=== PATIENT | male | born 1955 | race Caucasian/White ===

== ENCOUNTER 2017-04-23 18:14 | Emergency (ER) | payer OTHER ==
[2017-04-23 18:33] VITALS: BP 155/100; PULSE 66; TEMP 98.3; BMI 26.5
--- NOTE | 2017-04-23 18:41 | PDOC ---
History of Present Illness <Frannie Cardoza - Last Filed: 04/23/17 18:43> - General History Source: Patient Exam Limitations: No Limitations - History of Present Illness Initial Comments: 04/23/17 18:56 The patient is a 61 year old male with past medical history of tension headaches who presents to the ED with complaints of left shoulder pain for the past few days. The patient reports a sharp pain that feels deep underneath his shoulder that is worse upon movement. He reports that his pain has been unaffected by using his tens unit or hot showers for the pain but reports he has been doing lots of yard work and playing tennis. He denies any trauma or injury to the area. The patient denies any fever, chills, nausea, vomiting, or diarrhea. <Lorraine Morejon - Last Filed: 04/23/17 18:57> - General Chief Complaint: Pain Stated Complaint: PAIN L SHOULDER,LEFT ARM Time Seen by Provider: 04/23/17 18:30 Past History - Past Medical History Anemia: No Asthma: No Cancer: No Cardiac Disorders: No (PALPITATIONS) CVA: No COPD: No CHF: No DVT: No Dementia: No Diabetes: No GI Disorders: No Disorders: No HTN: No Hypercholesterolemia: No Liver Disease: No Seizures: No Thyroid Disease: No Other medical history: BACK PAIN - Surgical History Abdominal Surgery: Yes (HERNIA REPAIR) Appendectomy: No Cardiac Surgery: No Cholecystectomy: No Lung Surgery: No Neurologic Surgery: No Orthopedic Surgery: Yes - Suicide/Smoking/Psychosocial Hx Smoking Status: No Smoking History: Never smoked Have you smoked in the past 12 months: No Number of Cigarettes Smoked Daily: 0 Information on smoking cessation initiated: No Hx Alcohol Use: Yes (SOCIAL) Drug/Substance Use Hx: No Substance Use Type: Alcohol Hx Substance Use Treatment: No <Frannie Cardoza - Last Filed: 04/23/17 18:43> <Lorraine Morejon - Last Filed: 04/23/17 18:57> - Past Medical History Allergies/Adverse Reactions: Allergies Allergy/AdvReac Type Severity Reaction Status Date / Time codeine [Codeine] AdvReac Severe MIGRAINES Verified 04/23/17 18:26 hydrocodone [Hydrocodone] AdvReac Severe REBOUND Verified 04/23/17 18:26 HEADACHE oxycodone HCl [From Percocet] AdvReac Severe REBOUND Verified 04/23/17 18:26 HEADACHE OPIATES Allergy Severe MIGRAINES Uncoded 04/23/17 18:26 Home Medications: Ambulatory Orders Rizatriptan Benzoate [Maxalt] 10 mg PO PRN PRN 05/29/11 Verapamil HCl [Verapamil ER] 120 mg PO HS 04/24/12 Ibuprofen [Motrin -] 600 mg PO TID PRN #21 tablet 04/23/17 Methocarbamol [Robaxin -] 500 mg PO BID PRN #14 tablet 04/23/17 Review of Systems - Review of Systems Able to Perform ROS?: Yes Comments:: 04/23/17 18:56 GENERAL/CONSTITUTIONAL: No fever or chills. No weakness. HEAD, EYES, EARS, NOSE AND THROAT: No change in vision. No ear pain or discharge. No sore throat. CARDIOVASCULAR: No chest pain or shortness of breath. RESPIRATORY: No cough, wheezing, or hemoptysis. GASTROINTESTINAL: No nausea, vomiting, diarrhea or constipation. GENITOURINARY: No dysuria, frequency, or change in urination. MUSCULOSKELETAL: Present: left shoulder pain No neck or back pain. SKIN: No rash NEUROLOGIC: No headache, vertigo, loss of consciousness, or change in strength/ sensation. ENDOCRINE: No increased thirst. No abnormal weight change. HEMATOLOGIC/LYMPHATIC: No anemia, easy bleeding, or history of blood clots. ALLERGIC/IMMUNOLOGIC: No hives or skin allergy. All Other Systems: Reviewed and Negative <Lorraine Morejon - Last Filed: 04/23/17 18:57> *Physical Exam - Vital Signs Last Vital Signs Temp Pulse Resp BP Pulse Ox 98.3 F 66 20 155/100 98 04/23/17 18:15 04/23/17 18:15 04/23/17 18:15 04/23/17 18:15 04/23/17 18:15 - Physical Exam Comments: GENERAL: Awake, alert, and fully oriented, in no acute distress HEAD: No signs of trauma EYES: PERRLA, EOMI, sclera anicteric, conjunctiva clear ENT: Auricles normal inspection, hearing grossly normal, nares patent, oropharynx clear without exudates. Moist mucosa NECK: Normal ROM, supple, no lymphadenopathy, JVD, or masses LUNGS: Breath sounds equal, clear to auscultation bilaterally. No wheezes, and no crackles HEART: Regular rate and rhythm, normal S1 and S2, no murmurs, rubs or gallops ABDOMEN: Soft, nontender, normoactive bowel sounds. No guarding, no rebound. No masses MSK: Normal range of motion, no edema. No clubbing or cyanosis. No cords, erythema. +Soft tissue tenderness to the L shoulder to the area inferior and medial to the scapula. No midline spinal tenderness. NEUROLOGICAL: Cranial nerves II through XII grossly intact. Normal speech, normal gait SKIN: Warm, Dry, normal turgor, no rashes or lesions noted. <Frannie Cardoza - Last Filed: 04/23/17 18:43> - Vital Signs Last Vital Signs Temp Pulse Resp BP Pulse Ox 98.3 F 66 20 155/100 98 04/23/17 18:15 04/23/17 18:15 04/23/17 18:15 04/23/17 18:15 04/23/17 18:15 <Lorraine Morejon - Last Filed: 04/23/17 18:57> ED Treatment Course - Medications Given in the ED: ED Medications Discontinued Medications Generic Name Dose Route Start Last Admin Trade Name Freq PRN Reason Stop Dose Admin Ibuprofen 600 mg 04/23/17 18:43 04/23/17 18:46 Motrin - PO 04/23/17 18:44 600 mg ONCE ONE Administration Methocarbamol 500 mg 04/23/17 18:43 04/23/17 18:46 Robaxin - PO 04/23/17 18:44 500 mg ONCE ONE Administration <Lorraine Morejon - Last Filed: 04/23/17 18:57> Medical Decision Making - Medical Decision Making 04/23/17 18:45 Pt presents requesting "lidocaine shot" to his shoulder for pain. Etiology of pain appears to be rotator cuff, likely overuse injury based on presentation ( recently doing a lot of work outside, preceded by shoulder pain). No cp, SOB. No neck pain. Pain radiates to the posterior L upper arm. Counseled him that we can give pain medication and muscle relaxers in the ED, however, not a procedure on the shoulder. Recommended outpatient f/u with ortho if rest, muscle relaxers, and NSAIDs do not help. <Frannie Cardoza - Last Filed: 04/23/17 18:43> *DC/Admit/Observation/Transfer - Discharge Dispostion Admit: No <Frannie Cardoza - Last Filed: 04/23/17 18:43> - Attestations Scribe Attestion: 04/23/17 18:57 Documentation prepared by Lorraine Morejon, acting as medical laboratory scientist for Frannie Cardoza MD. <Lorraine Morejon - Last Filed: 04/23/17 18:57> Diagnosis at time of Disposition: Shoulder pain Qualifiers: Chronicity: acute Laterality: left Qualified Code(s): M25.512 - Pain in left shoulder - Discharge Dispostion Disposition: HOME Condition at time of disposition: Stable - Prescriptions Prescriptions: Ibuprofen [Motrin -] 600 mg PO TID PRN #21 tablet PRN Reason: Pain Methocarbamol [Robaxin -] 500 mg PO BID PRN #14 tablet PRN Reason: Muscle Spasms - Referrals Referrals: Aaron Duong MD [Staff Physician] - - Patient Instructions Printed Discharge Instructions: Shoulder Tendinopathy, DI for Shoulder Pain
[2017-04-23] MEDS ORDERED: METHOCARBAMOL 500 MG TABLET PO ONE (18:43)
[2017-04-23] MEDS ORDERED: IBUPROFEN 600 MG TABLET (FP) PO ONE ×2 (18:43→18:45)
[2017-04-23] MEDS ORDERED: METHOCARBAMOL 500 MG TABLET ONE (18:45)
== END 2017-04-23 18:59 | disposition home or self-care (01) ==
LOC: FER 18:14
DX: M25.512 Pain in left shoulder (principal); R00.2 Palpitations
CPT/HCPCS: 99282-25

== ENCOUNTER 2017-09-10 23:25 | Emergency (ER) | payer OTHER ==
--- NOTE | 2017-09-10 23:29 | PDOC ---
History of Present Illness - General Chief Complaint: Head/Neck problem Stated Complaint: LT ARM TINGLING Time Seen by Provider: 09/10/17 23:28 - History of Present Illness Initial Comments: This 61-year-old man with a history of hyperlipidemia, cervical disc disease and migraines presents with a few day history of intermittent paresthesias in the lateral aspect of left forearm/elbow region. Patient believes these episodes, which resolve spontaneously may be related to position of the arm( feels it especially when his arm is extended over his head). He also feels mild weakness of his shoulder when his arm is hyperextended. This resolves when the arm is lowered. No history of trauma or recent overuse although patient states that he plays a lot of tennis. He has past history of cervical disc disease with surgical procedure in the last several years. He has not had any speech difficulty/persistent extremity weakness/vision or balance problems. He denies left arm or any other extremity pain. Tonight, after a full meal, he noted epigastric discomfort/bloating which has largely resolved. He has not had chest pain or shortness of breath. He had a brief episode of throat tightness several hours ago that resolved spontaneously. No nausea/diaphoresis; according to the patient and his , in recent weeks, he has been drinking more alcohol on a social basis including in the last 3 days (2 separate social events which involved drinking substantial amount of alcohol) Last stress test was approximately 5 years ago. Patient states that he has had recent full-body CT scans showing no evidence of coronary artery disease Medications Verapamil (prescribed for migraine prophylaxis) Maxalt when necessary Patient also recently started OTC supplement containing B vitamins and testosterone Past History - Past Medical History Allergies/Adverse Reactions: Allergies Allergy/AdvReac Type Severity Reaction Status Date / Time codeine [Codeine] AdvReac Severe MIGRAINES Verified 04/23/17 18:26 hydrocodone [Hydrocodone] AdvReac Severe REBOUND Verified 04/23/17 18:26 HEADACHE oxycodone HCl [From Percocet] AdvReac Severe REBOUND Verified 04/23/17 18:26 HEADACHE OPIATES Allergy Severe MIGRAINES Uncoded 04/23/17 18:26 Home Medications: Ambulatory Orders Rizatriptan Benzoate [Maxalt] 10 mg PO PRN PRN 05/29/11 Verapamil HCl [Verapamil ER] 120 mg PO HS 04/24/12 Anemia: No Asthma: No Cancer: No Cardiac Disorders: No (PALPITATIONS) CVA: No COPD: No CHF: No DVT: No Dementia: No Diabetes: No GI Disorders: No Disorders: No HTN: No Hypercholesterolemia: No Liver Disease: No Seizures: No Thyroid Disease: No - Surgical History Abdominal Surgery: Yes (HERNIA REPAIR) Appendectomy: No Cardiac Surgery: No Cholecystectomy: No Lung Surgery: No Neurologic Surgery: No Orthopedic Surgery: Yes - Suicide/Smoking/Psychosocial Hx Smoking Status: No Smoking History: Never smoked Have you smoked in the past 12 months: No Number of Cigarettes Smoked Daily: 0 Hx Alcohol Use: Yes (SOCIAL) Drug/Substance Use Hx: No Substance Use Type: Alcohol Hx Substance Use Treatment: No Review of Systems - Review of Systems Able to Perform ROS?: Yes Comments:: 12 point review of systems is negative except for what is noted in the history of present illness *Physical Exam - Physical Exam Comments: GENERAL: Adult male, alert and oriented 3, in no acute distress HEAD: Normal with no signs of trauma. EYES: PERRLA, EOMI, sclera anicteric, conjunctiva clear. ENT: Ears normal, nares patent, oropharynx clear without exudates. Dry mucous membranes. NECK: Normal range of motion, supple without lymphadenopathy, JVD, or masses. LUNGS: Breath sounds equal, clear to auscultation bilaterally. No wheezes, and no crackles. HEART:Regular rate and rhythm, normal S1 and S2 without murmur, rub or gallop. ABDOMEN:.normal bowel sounds No guarding,tenderness or rebound.No masses No distention. EXTREMITIES: Normal range of motion, no edema. No clubbing or cyanosis. No erythema, or tenderness. NEUROLOGICAL: Cranial nerves II through XII grossly intact. Normal speech. Motor 5/5 throughout; no gross sensory deficit present in left upper extremity SKIN: Warm, Dry, normal turgor, no rashes or lesions noted. 12-lead electrocardiogram is performed and interpreted by me :normal sinus rhythm at 65 bpm, intervals, wave forms and axis are all normal. It is unchanged from EKG tracing dated 10/15/13 Medical Decision Making - Medical Decision Making This 61-year-old man with a history of hyperlipidemia ,cervical radiculopathy and migraines presents with a few day history of intermittent left arm paresthesias. No associated pain or persistent weakness present in the extremity. The patient also had some nonspecific symptoms this evening, now resolved including epigastric discomfort/bloating. No chest pain/shortness of breath/jaw pain. No symptoms of acute CVA. Exam as noted. 12-lead EKG shows no evidence of acute ST or T-wave abnormalities and is unchanged from tracing from 2014. Patient is concerned that he may be dehydrated because in the past, chemistry profiles have revealed evidence of dehydration. In recent days, the patient has had increased alcohol intake but no other reasons for dehydration. Since patient has such an extensive history of cervical radiculopathy and paresthesia in his left arm is intermittent/related to arm position, is very likely that his arm numbness is related to cervical disc disease. Patient already has a neurologist and has had multiple MRIs in the past evaluating his cervical spine. As for the other nonspecific symptoms of intermittent epigastric bloating and resolved throat tightness, since patient has 2 risk factors for coronary artery disease(hyperlipidemia/possible family history ), laboratory evaluation including troponin would need to be done to fully rule out IN. 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 Lara within the next 48 hours Follow-up with your neurologist within the next 5 days Return to ER if you have worsening numbness/arm weakness /difficulty speaking/ vision or balance problems - Post Discharge Activity
[2017-09-10 23:32] VITALS: BP 137/82; PULSE 67; TEMP 98.8
[2017-09-10 23:34] VITALS: BMI 26.9
--- NOTE | 2017-09-13 00:54 | EKG ---
Test Reason : Blood Pressure : / mmHG Vent. Rate : 065 BPM Atrial Rate : 065 BPM P-R Int : 182 ms QRS Dur : 070 ms QT Int : 408 ms P-R-T Axes : 036 008 042 degrees QTc Int : 424 ms NORMAL SINUS RHYTHM NONSPECIFIC T WAVE ABNORMALITY ABNORMAL ECG WHEN COMPARED WITH ECG OF 15-OCT-2013 10:23, NO SIGNIFICANT CHANGE WAS FOUND Confirmed by SALBADOR JOHNSON MD ([id number]) on 09/13/2017 12:54:06 AM Referred By: MD TOLEDO Confirmed By:SALBADOR JOHNSON MD
== END 2017-09-11 00:21 | disposition home or self-care (01) ==
LOC: FER 23:25
DX: R20.2 Paresthesia of skin (principal); E78.5 Hyperlipidemia, unspecified; M54.12 Radiculopathy, cervical region
CPT/HCPCS: 93005; 99282-25

== ENCOUNTER 2020-06-29 18:49 | Emergency (ER) | payer OTHER ==
[2020-06-29 19:18] VITALS: PULSE 66; TEMP 98.5; BMI 27.3
[2020-06-29 20:21] LABS: BASO % 1.8 % (0-2.0); EOS % 2.1 % (0-4.5); HEMATOCRIT 41.7 % (35.4-49); HEMOGLOBIN 13.9 GM/dl (11.7-16.9); MCH 30.7 pg (25.7-33.7); MCHC 33.4 g/dl (32.0-35.9); MEAN CELL VOLUME 91.7 fl (80-96); MEAN PLT VOLUME 8.6 fl (7.5-11.1); MONO % 9.6 % (3.8-10.2); NEUT % 61.5 % (42.8-82.8); PLATELET COUNT 311 K/MM3 (134-434); RBC 4.55 M/mm3 (4.00-5.60); RDW 13.1 % (11.9-15.9); WHITE BLOOD COUNT 7.9 K/mm3 (4.0-10.8)
[2020-06-29] MEDS ORDERED: KETOROLAC TROMETHAMINE 30 MG/1 ML VIAL IVPUSH ONE (20:21)
[2020-06-29] MEDS ORDERED: KETOROLAC TROMETHAMINE 30 MG/1 ML VIAL ONE (20:23)
[2020-06-29 20:30] LABS: BILIRUBIN,TOTAL 0.6 mg/dl (0.2-1); CREATININE 1.7 mg/dl (0.55-1.3); POTASSIUM 4.3 mmol/L (3.5-5.1); TOT PROT 6.6 g/dl (6.4-8.2)
[2020-06-29 20:54] VITALS: BP 150/89
== END 2020-06-29 20:56 | disposition home or self-care (01) ==
LOC: FER 18:49
PROC: 3E0333Z Introduction of Anti-inflammatory into Peripheral Vein, Percutaneous Approach (ICD-10-PCS; principal; 2020-06-29)
DX: I10 Essential (primary) hypertension (principal)
CPT/HCPCS: 36415; 71045-TC-FY; 80053; 84484; 85025; 93005; 99285-25

== ENCOUNTER 2022-10-30 21:11 | Emergency (ER) | payer OTHER, MEDICARE ==
[2022-10-30 21:40] VITALS: BP 161/97; PULSE 72; RESP 16; TEMP 98.7; BMI 27.5
[2022-10-30] MEDS ORDERED: CLINDAMYCIN HCL 300 MG CAPSULE PO ONE (22:20)
[2022-10-30] MEDS ORDERED: CLINDAMYCIN HCL 150 MG CAPSULE (FP) ONE (22:22)
[2022-10-30 22:39] LABS: HEMATOCRIT 41.8 % (35.4-49); HEMOGLOBIN 14.4 G/dL (11.7-16.9); MCH 32.1 pg (25.7-33.7); MCHC 34.5 g/dl (32.0-35.9); MEAN CELL VOLUME 93.2 fl (80-96); MEAN PLT VOLUME 7.7 fl (7.5-11.1); PLATELET COUNT 343.2 10^3/uL (134-434); RBC 4.49 10^6/uL (4.00-5.60); RDW 14.3 % (11.9-15.9); WHITE BLOOD COUNT 8.8 10^3/uL (4.0-10.8)
[2022-10-30 23:11] LABS: ALBUMIN 4.5 g/dl (3.4-5.0); BILIRUBIN,TOTAL 0.4 mg/dl (0.2-1); BLOOD UREA NITROGEN 24.2 mg/dl (7-18); CALCIUM 9.5 mg/dl (8.5-10.1); CREATININE 1.3 mg/dl (0.6-1.3); POTASSIUM 3.9 mmol/L (3.5-5.1); SGOT/AST 18.4 U/L (15-37); SGPT/ALT 27.6 U/L (7-52); TOT PROT 6.8 g/dl (6.4-8.2)
== END 2022-10-30 22:34 | disposition home or self-care (01) ==
LOC: FER 21:11
DX: L03.115 Cellulitis of right lower limb (principal); R53.81 Other malaise; M79.651 Pain in right thigh; L53.9 Erythematous condition, unspecified
CPT/HCPCS: 36415; 80053; 85027; 99283-25